=== PATIENT | male | born 1975 | race Hispanic/Latino ===

== ENCOUNTER 2019-04-04 12:59 | Outpatient (CLI) | payer OTHER ==
--- NOTE | 2019-04-04 14:56 | ULT ---
RIGHT UPPER QUADRANT ULTRASOUND: HISTORY: Right upper quadrant pain. FINDINGS: Real-time imaging of the right upper quadrant shows a normal appearance gallbladder. The common duct is in the 3 to 4 mm range. The liver measures 20.1 cm in length. It is of mild increased echogenicity . The pancreas is partially obscured. The right kidney is normal in size and not obstructed. IMPRESSION: Borderline sized liver which shows some mild fatty change. POS: [facility]
== END 2019-04-04 13:00 | disposition home or self-care (01) ==
LOC: BICULT 12:59
PROVIDERS: ATTEND Family Medicine
DX: R10.11 Right upper quadrant pain (principal)
CPT/HCPCS: 93975

== ENCOUNTER 2020-12-18 09:21 | Emergency (ER) | payer BC | END 2020-12-18 11:10 | disposition home or self-care (01) | LOC: ERS 09:21 | DX: M77.8 Other enthesopathies, not elsewhere classified (principal); E11.9 Type 2 diabetes mellitus without complications; E78.5 Hyperlipidemia, unspecified; E78.00 Pure hypercholesterolemia, unspecified; I10 Essential (primary) hypertension; J45.909 Unspecified asthma, uncomplicated; F17.210 Nicotine dependence, cigarettes, uncomplicated; Z79.84 Long term (current) use of oral hypoglycemic drugs; Z79.899 Other long term (current) drug therapy ==